=== PATIENT | male | born 1980 | race Caucasian/White ===

== ENCOUNTER 2017-01-05 08:40 | Emergency (ER) | payer OTHER ==
--- NOTE | ~2017-01-05 | CR63 ---
[facility]. [facility] A Service of [facility] & [facility] RADIOLOGY TEXT RESULTS PATIENT: JEFF BALBUENA LOCATION: [facility] : 78 UNIT #: [id number] AGE: [address]: Tim Choi MD SEX: M ORDER DR: [id number] [place] [address] [id number] E MR#: [id number] Acc #: [id number] NAME: JEFF BALBUENA : 1980 SEX: M STUDY DATE/TIME: 01/05/2017 9:37 UNIT: SED ROOM: STUDY DESCRIPTION: CR Chest 2 View Attending Physician: Tim Choi M.D. Ordering Physician: Tim Choi M.D. Primary Care Physician: Jayson Sanchez M.D. MEDICAL IMAGING REPORT This report is preliminary unless electronic signature is present. EXAM 2-view chest INDICATIONS Cough. Body aches and fever. Wheezing. FINDINGS PA and lateral views of the chest compared to 05/10/2013. The heart and mediastinal contours are normal. Lungs are clear. No pleural effusion. IMPRESSION Negative chest radiograph. Dictated by... Rashad Amezquita M.D. THIS IS AN ELECTRONICALLY VERIFIED REPORT Rashad Amezquita M.D. at 01/06/2017 1:24 PM RPC/naida TD: 01/06/2017 03:17 JOB #: [id number] MEDICAL IMAGING REPORT Page 1 of 1
[~2017-01-05 08:40] MED LIST: ALBUTEROL17 GM; AMOXICILLIN PO; AMOXICILLIN500 M1 PO; AMOXIL500 MG PO; ATARAX PO; AUGMENTIN875 M1 PO; AURALGAN EAR DR14 ML OT; BACLOFEN10 MG PO; BACTRIM DS TABL1 TAB PO; BENZONATATE PO; CIPRO HC OTIC S10 ML OT; CLEOCIN PO; CORTISPORI10 ML OTIC AD; DARVOCET-N 1001 TA2 PO; DICLOFENAC PO; FLEXERIL PO; FLEXERIL10 MG PO; IBUPROFEN800 MG PO; LORTAB 10/500 T1 TAB PO; MEDROL4 MG/DOSE- PO; METHADOSE5 MG PO; MOBIC15 MG PO; NAPROXEN PO; NEXIUM PO; NO MEDICATIONS; PEN-VEE K PO; PERCOCET 5-3251 TAB PO; PERCOCET PO; PHENERGAN25 MG; PHENERGAN25 MG PO; PREDNISONE PO; PREDNISONE50 MG PO; PRILOSEC; PRILOSEC PO; PRILOSEC20 M1 PO; PRILOSEC40 MG PO; ROBAXIN500 MG PO; TYLENOL #3 PO; ULTRACET TABLET1 TAB PO; ULTRAM PO; VICODIN 5/500 T1 TAB PO; VISCOUS LIDOCAINE TOP; VOLTAREN50 MG PO; VOLTAREN75 MG PO; ZANTAC150 M1 PO; ZANTAC150 MG PO; [UNRECOGNIZED DRUG - REMARK] PO
[2017-01-05] MEDS ORDERED: NEURONTIN (08:53)
[2017-01-05 09:30] LABS: INFLUENZA A NEG (NEG); INFLUENZA B NEG (NEG)
== END 2017-01-05 10:17 | disposition home or self-care (01) ==
LOC: SED 08:40 → CED 09:04 → SED 10:17
PROVIDERS: Emergency Medicine
DX: J20.9 Acute bronchitis, unspecified (principal); J01.00 Acute maxillary sinusitis, unspecified; J01.20 Acute ethmoidal sinusitis, unspecified; J44.9 Chronic obstructive pulmonary disease, unspecified; K21.9 Gastro-esophageal reflux disease without esophagitis; Z98.890 Other specified postprocedural states; F17.210 Nicotine dependence, cigarettes, uncomplicated; Z79.899 Other long term (current) drug therapy
CPT/HCPCS: 71020; 87651; 87804; 94640; 99283

== ENCOUNTER 2017-01-09 13:53 | Emergency (ER) | payer OTHER ==
--- NOTE | ~2017-01-09 | CR72 ---
[facility]. [facility] A Service of [facility] & [facility] RADIOLOGY TEXT RESULTS PATIENT: JEFF BALBUENA LOCATION: SED : 78 UNIT #: [id number] AGE: [address]: Corin Burns SEX: M ORDER DR: [id number] [address] [address] [id number] E MR#: [id number] Acc #: [id number] NAME: JEFF BALBUENA : 1980 SEX: M STUDY DATE/TIME: 01/09/2017 15:45 UNIT: SED ROOM: STUDY DESCRIPTION: CR Chest Single View Portable Attending Physician: Corin Burns Pa-C Ordering Physician: Tim Choi M.D. Primary Care Physician: Jayson Sanchez M.D. MEDICAL IMAGING REPORT This report is preliminary unless electronic signature is present. EXAM Portable chest. HISTORY Cough and wheezing and confusion for 1 week. FINDINGS The cardiac size and pulmonary vascularity are normal. No infiltrates or effusions. Mild mid-right thoracic curve. Moderate hypertrophic changes, mid and lower thoracic spine. IMPRESSION No acute findings. No active disease. Dictated by... Feliz Rios M.D. THIS IS AN ELECTRONICALLY VERIFIED REPORT Feliz Rios M.D. at 01/10/2017 11:34 PM DFL/marian TD: 01/10/2017 08:25 JOB #: [id number] MEDICAL IMAGING REPORT Page 1 of 1
[~2017-01-09 13:53] MED LIST changes: +NEURONTIN
[2017-01-09 15:25] LABS: BASOPHIL% 0.2 % (0-2.5); EOSINOPHIL% 0.1 % (0.0-7.0); HEMOGLOBIN 15.4 gm/dL (13.0-16.0); LYMPHOCYTE# 2.8 X10e3 (1.0-3.5); LYMPHOCYTE% 27.9 % (17.0-45.0); MEAN CELL VOLUME 94.6 FL (83-96); MEAN CORPUSCULAR HGB CONC 34.9 g/dL (30-36); MEAN PLATELET VOLUME 7.7 FL (6.5-11.5); MONOCYTE# 0.5 X10e3 (0-1.0); MONOCYTE% 4.9 % (3.0-12.0); NEUTROPHIL# 6.8 X10e3 (1.5-7.1); NEUTROPHIL% 66.9 % (40-75); PLATELET COUNT 263 X10e3 (140-420); RED BLOOD COUNT 4.65 X10e (3.90-5.60); WHITE BLOOD COUNT 10.2 X10e3 (4.0-10.5)
[2017-01-09 15:26] LABS: DIFF IND NO
[2017-01-09 15:27] LABS: INFLUENZA A NEG (NEG); INFLUENZA B NEG (NEG)
[2017-01-09 15:48] LABS: ALBUMIN SERUM 4.5 g/dL (3.5-5.0); BILIRUBIN,TOTAL 0.5 mg/dL (0.2-2.0); BUN/CREATININE RATIO 14.44; CALCIUM SERUM 8.9 mg/dL (8.4-10.2); CREATININE SERUM 0.9 mg/dL (0.6-1.4); GLOM FILT RATE Estimated 108.7 mL/min (>60); POTASSIUM 3.8 mmol/L (3.5-5.1); PROTEIN TOTAL SERUM 7.5 g/dL (6.0-8.3)
== END 2017-01-09 17:25 | disposition home or self-care (01) ==
LOC: SED 13:53
PROVIDERS: Physician Assistant
DX: J44.1 Chronic obstructive pulmonary disease with (acute) exacerbation (principal); K21.9 Gastro-esophageal reflux disease without esophagitis; G62.9 Polyneuropathy, unspecified; F17.200 Nicotine dependence, unspecified, uncomplicated; Z79.899 Other long term (current) drug therapy
CPT/HCPCS: 36415; 71010; 80053; 85025; 87804; 94640; 96374; 99284; J2930